=== PATIENT | female | born 2000 | race Hispanic/Latino ===

== ENCOUNTER 2022-06-19 02:49 | Emergency (ER) | payer OTHER ==
[~2022-06-19] VITALS: Ht 157.5 cm; Wt 77.1 kg
[2022-06-19 03:03] VITALS: BP 121/68
[2022-06-19] MEDS ORDERED: NS 1000ML 1,000 ML IV ONE ×2 (03:10→03:30)
[2022-06-19 03:16] LABS: BASOPHIL # 0.1 10^3/uL (0.0-0.1); BASOPHIL % 0.7 % (0.0-0.2); EOSINOPHIL # 0.1 10^3/uL (0.0-0.2); EOSINOPHIL % 0.8 % (0.0-5.0); LYMPHOCYTES # 2.47 10^3/uL1 (1.2-5.2); LYMPHOCYTES % 29.8 % (24.0-44.0); MONOCYTES # 0.5 10^3/uL (0.0-0.4); MONOCYTES % 5.7 % (5.0-12.0); NEUTROPHIL # 5.2 10^3/uL (1.8-8.0); NEUTROPHILS % 62.9 % (41.0-85.0); PLATELET COUNT 401 10^3/uL (150-400); RED CELL DISTRIBUTION WIDTH 18.8 % (11.5-14.5)
[2022-06-19] MEDS ORDERED: NS 1000ML 1,000 ML IV STA (03:17)
[2022-06-19] MEDS ORDERED: NS 1000ML 1,000 ML ONE (03:19)
[2022-06-19 03:33] LABS: CARBON DIOXIDE 19.2 mmol/L (20.0-32)
[2022-06-19] MEDS ORDERED: THIAMINE HCL ONE (03:34)
[2022-06-19] MEDS ORDERED: THIAMINE HCL IV STA (03:36)
[2022-06-19] MEDS ORDERED: ZOFRAN ONE (03:44)
--- NOTE | 2022-06-19 03:49 | ER.PDOC ---
General Chief Complaint: Nausea,Vomiting,Diarrhea Stated Complaint: ETOH Time seen by MD: 14:58 Source: patient, RN notes reviewed Exam Limitations: clinical condition History of Present Illness Initial Comments pt is a 21yo female with no past medical history p/w a few hour history of feeling drowsy after drinking alcohol at a [employer]. The friend, the designated taxicab driver said she was driving her home and felt that she was too drowsy and minimally responsive so she brought her to the ER. In the ER, she was intoxicated with alcool smell from her, sleeping in no distress with oxygenation 100% on RA. Review of systems: unable to obtain due to medical condition Severity/Quality: mild Associated Symptoms (vomiting): mild vomiting Allergies: Coded Allergies: No Known Allergies (Unverified , 06/19/22) Vital Signs First Vital Signs Date Time Temp Pulse Resp B/P (MAP) Pulse Ox O2 Delivery O2 Flow Rate FiO2 06/19/22 03:03 97.9 103 16 06/19/22 03:03 97 06/19/22 03:03 121/68 (85) Room Air* 0 21 Last Vital Signs Date Time Temp Pulse Resp B/P (MAP) Pulse Ox O2 Delivery O2 Flow Rate FiO2 06/19/22 03:03 97.9 103 16 121/68 (85) 97 Room Air* 0 21 Past Medical History Medical History: no pertinent history Surgical History: no surgical history Social History Alcohol Use: occassionally Drug Use: none Reviewed Nursing Reviewed: Vital Signs, Abn. Noted, Nursing Assessment Physical Exam General Appearance: No Apparent Distress HEENT: Normal ENT Inspection Neck: Supple Respiratory: chest non-tender, lungs clear, normal breath sounds, no respiratory distress, no accessory muscle use Gastrointestinal: Normal Bowel Sounds Extremities: Normal Inspection, No Pedal Edema Neurologic/Psychiatric: Other (asleep, intoxicated) Skin: Normal Color, Warm/Dry Results/Orders Results/Orders Orders - KIKA MERAZ MD Cbc With Auto Diff (06/19/22 03:08) Comprehensive Metabolic Panel (06/19/22 03:08) Urinalysis (06/19/22 03:08) Drug Scrn Med W Confirmation (06/19/22 03:08) Alcohol(Ml) (06/19/22 03:08) 0.9 % Sodium Chloride (Ns 1000ml) (06/19/22 03:30) 0.9 % Sodium Chloride (Ns 1000ml) (06/19/22 03:10) Lipase (06/19/22 03:12) 0.9 % Sodium Chloride (Ns 1000ml) (06/19/22 03:17) 0.9 % Sodium Chloride (Ns 1000ml) (06/19/22 03:19) Thiamine Hcl (Thiamine Hcl) (06/19/22 03:34) Thiamine Hcl (Thiamine Hcl) (06/19/22 03:36) Ondansetron Hcl/Pf (Zofran) (06/19/22 03:44) Ondansetron Hcl/Pf (Zofran) (06/19/22 03:50) Urine Culture (06/19/22 04:48) Vital Signs Date Time Temp Pulse Resp B/P (MAP) Pulse Ox O2 Delivery O2 Flow Rate FiO2 06/19/22 03:03 97.9 103 16 121/68 (85) 97 Room Air* 0 21 06/19/22 03:03 97.9 103 16 97 06/19/22 03:03 97.9 103 16 Administered Medications Medications (Trade) Dose Ordered Sig/Aric Route PRN Reason Start Time Stop Time Status Last Admin Dose Admin Ondansetron HCl (Zofran) 4 mg OT STAT IV 06/19/22 03:50 06/19/22 03:52 DC 06/19/22 03:52 4 MG Sodium Chloride 1,000 ml @ 1,000 mls/hr Q1H STAT IV 06/19/22 03:17 06/19/22 04:16 DC 06/19/22 03:31 1,000 MLS/HR Thiamine HCl (Thiamine HCl) 100 mg STAT STAT IV 06/19/22 03:36 06/19/22 03:38 DC 06/19/22 03:41 100 MG Laboratory Tests Test 06/19/22 03:00 06/19/22 04:44 06/19/22 04:48 White Blood Count 8.3 10^3/uL (4.5-12.5) Red Blood Count 4.87 10^6/uL (4.00-5.20) Hemoglobin 11.7 g/dL (12.4-14.8) L Hematocrit 37.4 % (36.0-46.0) Mean Corpuscular Volume 76.8 fL (78-100) L Mean Corpuscular Hemoglobin 24.0 pg (26-34) L Mean Corpuscular Hemoglobin Concent 31.3 g/dL (33-36.5) L Red Cell Distribution Width 18.8 % (11.5-14.5) H Platelet Count 401 10^3/uL (150-400) H Mean Platelet Volume 10.3 fL (7.8-11.0) Neutrophils (%) (Auto) 62.9 % (41.0-85.0) Lymphocytes (%) (Auto) 29.8 % (24.0-44.0) Monocytes (%) (Auto) 5.7 % (5.0-12.0) Neutrophils # (Auto) 5.2 10^3/uL (1.8-8.0) Lymphocytes # (Auto) 2.47 10^3/uL1 (1.2-5.2) Monocytes # (Auto) 0.5 10^3/uL (0.0-0.4) H Absolute Immature Granulocyte (auto 0.01 10^3 u/L (0-2) Absolute Eosinophils (auto) 0.1 10^3/uL (0.0-0.2) Immature Granulocytes % 0.10 % (0.00-0.50) Eosinophils % 0.8 % (0.0-5.0) Basophils % 0.7 % (0.0-0.2) H Basophils # 0.1 10^3/uL (0.0-0.1) Sodium Level 139 mmol/L (132-145) Potassium Level 3.2 mmol/L (3.6-5.2) L Chloride Level 103.0 mmol/L (96-109) Carbon Dioxide Level 19.2 mmol/L (20.0-32) L Anion Gap 20.0 Blood Urea Nitrogen 5 mg/dL (7-18) L Creatinine 0.70 mg/dL (0.59-1.40) Estimated GFR () 129.1 (>/=60) Est GFR (CKD-EPI)(Non-Afr Swiss) 106.7 (>/=60) BUN/Creatinine Ratio 7.0 Glucose Level 185 mg/dL (70-110) H Calcium Level 8.7 mg/dL (8.4-10.5) Total Bilirubin 0.1 mg/dL (0.2-1.0) L Aspartate Amino Transferase (AST) 18 U/L (0-35) Alanine Aminotransferase (ALT) 28 U/L (12-78) Alkaline Phosphatase 85 U/L (50-136) Total Protein 8.4 g/dL (6.4-8.2) H Albumin 4.0 g/dL (3.4-5.0) Globulin 4.4 Albumin/Globulin Ratio 0.909 Lipase 46 U/L (114-286) L Serum Alcohol 174 mg/dL (0-50) H Urine Opiates Screen NEGATIVE (c/o300ng/mL) Urine Methadone Screen NEGATIVE (c/o300ng/mL) Urine Barbiturates Screen NEGATIVE (c/o200ng/mL) Urine Phencyclidine Screen NEGATIVE (c/o 25ng/mL) Ur Amphetamine/Methamphetamine NEGATIVE ([id number]/mL) Urine MDMA Screen (Ecstasy) NEGATIVE (c/o300ng/mL) Urine Benzodiazepines Screen NEGATIVE (c/o200ng/mL) Urine Cocaine Metabolite Screen NEGATIVE (c/o300ng/mL) Ur Tetrahydrocannabinol (THC) Scrn NEGATIVE (c/o 50ng/mL) Urine Collection Type RANDOM Urine Color YELLOW Urine Appearance CLEAR Urine Bilirubin NEGATIVE (NEGATIVE) Urine Ketones NEGATIVE (NEGATIVE) Urine Specific [place] 1.020 (1.005-1.030) Urine pH 5.0 (4.5-8.0) Urine Protein NEGATIVE (NEGATIVE) Urine Urobilinogen 0.2 E.U./dL (0.2) Urine Nitrate NEGATIVE (NEGATIVE) Urine Leukocyte Esterase 1+ (NEGATIVE) H Urine Glucose (Auto)(UA) NEGATIVE (NEGATIVE) Urine Blood NEGATIVE (NEGATIVE) Urine RBC 0-2 RBC/HPF (NONE SEEN) Urine WBC 5-10 WBC/HPF (0-2) H Urine Squamous Epithelial Cells FEW (<=FEW) Urine Bacteria FEW (NONE SEEN) H Progress Progress pt was able to wake up and is answering all questions. She was able to self ambulate and g to the restroom. She is AAO X4. [facility]r [facility] and will [facility] her home and there is someone at home that stay with her. the friend was the designated taxicab driver EKG/XRAY/CT/US EKG: NSR EKG Comments: no ST elevation or depression ER DEPART Departure Time of Disposition: 05:10 Disposition: 01 HOME / SELF CARE / HOMELESS Impression: Primary Impression: Alcohol intoxication Condition: Improved Patient Instructions: Alcohol Intoxication, [id number] Referrals: PCP,UNKNOWN (PCP) PRIMARY CARE PROVIDER Duration or Time Spent with Pa: 16 KIKA MERAZ MD Jun 19, 2022 03:49
[2022-06-19] MEDS ORDERED: ZOFRAN IV STA (03:50)
--- NOTE | 2022-06-19 03:53 | NUR ---
Pt is arousable, sleeping intermittently. Pt able to answer question correctly.
[2022-06-19 04:00] VITALS: BP 112/66
--- NOTE | 2022-06-19 04:30 | NUR ---
Pt amb to bathroom. Gait steady. Pt A&O x4.
[2022-06-19 04:55] LABS: BILIRUBIN,URINE NEGATIVE (NEGATIVE); UROBILINOGEN,URINE 0.2 E.U./dL (0.2)
[2022-06-19 05:30] VITALS: BP 107/71
== END 2022-06-19 05:43 | disposition home or self-care (01) ==
LOC: ER 02:49 → EDBD 02:49 → ER 05:43
DX: F10.129 Alcohol abuse with intoxication, unspecified (principal)
CPT/HCPCS: 99284; 96374; 96361; 96375; 87086; 80053; 85025; 36415; 80307; 82077; 83690; 81001; J7030; J2405; J3411